=== PATIENT | female | born 1985 | race Caucasian/White ===

== ENCOUNTER 2019-08-04 18:01 | Emergency (ER) | payer OTHER ==
[~2019-08-04] VITALS: Ht 160 cm; Wt 121.1 kg
[2019-08-04 18:13] VITALS: BP 119/73
--- NOTE | 2019-08-04 18:19 | NUR ---
PT PLACED IN BED 9.
--- NOTE | 2019-08-04 18:45 | NUR ---
PT PRESENTS TO ED WITH C/O LOWER BACKL PAIN WITH CHILLS, NAUSEA, VOMITING. PAIN RAIDTES TO FRONT OF THE ABDOMEN. FEVER ON AND OFF. SABRINA ANY DISCOMFORT WITH URINE. PT AAO X4, GCS 51, AMBULATORY WITH STEADY GAIT. RESPIRATIONS EVEN AND UNLABORED, BL LUNG CEAR. SKIN WAMR/PINK/DRY, +PMSC. ABDOMEN SOFT, NON DISTENDED, ACTIVE BOWEL SOUND X4. VS, FEBRILE, STATED LOWER BACK PAIN 10/10. MADE AWARE OF PT STATUS. WILL CONTINUE TO MONITOR
[2019-08-04] MEDS ORDERED: KETOROLAC 30 MG/ML VIAL IVP ONE (18:55)
[2019-08-04] MEDS ORDERED: NACL 0.9% 1,000 ML IV ONE (18:55)
[2019-08-04] MEDS ORDERED: ACETAMINOPHEN 325 MG TAB PO ONE (19:00)
--- NOTE | 2019-08-04 19:15 | NUR ---
REPORT GIVEN TO AMADA DILLARD
[2019-08-04 19:19] LABS: BASOPHILS % (AUTO) 0.3 % (0.0-2.0); EOSINOPHILS % (AUTO) 0.3 % (0.0-4.0); HEMATOCRIT 37.8 % (36-48); HEMOGLOBIN 12.7 g/dL (12.0-16.0); LYMPHOCYTES # (AUTO) 2.2 K/uL (2.5-16.5); LYMPHOCYTES % (AUTO) 23.8 % (20.5-51.1); MEAN CORPUSCULAR HEMOGLOBIN 30 pg (27-31); MEAN CORPUSCULAR HGB CONC 34 g/dL (33-37); MEAN CORPUSCULAR VOLUME 88.2 fL (80-94); MONOCYTES # (AUTO) 0.8 K/uL (0.8-1.0); MONOCYTES % (AUTO) 8.3 % (1.7-9.3); NEUTROPHILS # (AUTO) 6.3 K/uL (1.8-7.7); NEUTROPHILS % (AUTO) 67.3 % (42.2-75.2); PLATELET COUNT (AUTO) 228 K/uL (140-450); RED BLOOD CELL COUNT(AUTO) 4.28 MIL/uL (4.20-5.40); RED CELL DISTRIBUTION WIDTH 14.2 % (11.6-13.7); WHITE BLOOD COUNT (AUTO) 9.4 K/uL (4.8-10.8)
[2019-08-04 19:30] LABS: ANION GAP 16.7 (8-16); CARBON DIOXIDE 25.2 mmol/L (21-32); CREATININE 0.8 mg/dL (0.6-1.3); POTASSIUM 3.9 mmol/L (3.5-5.1)
[2019-08-04 19:35] LABS: ALBUMIN 3.5 g/dL (3.4-5.0); TOTAL BILIRUBIN 0.8 mg/dL (0.0-1.0)
--- NOTE | 2019-08-04 19:35 | NUR ---
PT AAOX4, NO ACUTE DISTRESS NOTED. VSS. WILL CONTINUE TO OBSERVE.
[2019-08-04 19:40] LABS: APPEARANCE,URINE HAZY (CLEAR); BILIRUBIN,URINE 1+ (NEGATIVE); BLOOD, URINE 1+ (NEGATIVE); COLOR,URINE YELLOW (YELLOW); LEUKOCYTE ESTERASE ,URINE NEGATIVE (NEGATIVE); NITRITE, URINE NEGATIVE (NEGATIVE); UGLUCOSE NEGATIVE (NEGATIVE)
[2019-08-04 19:51] LABS: RBC,URINE 0-5 /HPF (0-5); WBC,URINE 0-5 /HPF (0-5)
[2019-08-04] MEDS ORDERED: LEVOFLOXACIN 750 MG/D5W PREMIX 150 ML IV ONE (20:10)
--- NOTE | 2019-08-04 21:32 | NUR ---
PT RETURN FROM CT
[2019-08-04] MEDS ORDERED: MORPHINE SULFATE 4 MG/ML SYR IVP ONE (22:35)
[2019-08-04] MEDS ORDERED: ONDANSETRON 4 MG/2 ML VIAL IVP ONE (22:35)
--- NOTE | 2019-08-04 23:00 | NUR ---
DPatient discharged with v/s stable. Written and verbal after care instructions given and explained. Patient alert, oriented and verbalized understanding of instructions. Ambulatory with steady gait. All questions addressed prior to discharge. ID band removed. Patient advised to follow up with PMD. Rx of LEVAQUIN, NAPROXEN, ZOFRAN, NORCO given. Patient educated on indication of medication including possible reaction and side effects. Opportunity to ask questions provided and answered.
[2019-08-04 23:59] VITALS: BP 119/73
--- NOTE | 2019-08-05 08:41 | NUR ---
Late entry. Confirmed with RN that Levaquin IVPB completed at [id number]
== END 2019-08-04 23:00 | disposition home or self-care (01) ==
LOC: MED 18:01
DX: N12 Tubulo-interstitial nephritis, not specified as acute or chronic (principal); R11.2 Nausea with vomiting, unspecified; Z88.0 Allergy status to penicillin; Z88.5 Allergy status to narcotic agent
CPT/HCPCS: 36415; 74176; 80053; 81001; 81025; 83605; 85025; 87040; 87086; 96361; 96365; 96366; 96375; 99284; J1885; J1956; J2270; J2405; J7030

== ENCOUNTER 2020-04-14 14:02 | Emergency (ER) | payer OTHER ==
[~2020-04-14] VITALS: Ht 160 cm; Wt 124.3 kg
[2020-04-14 14:08] VITALS: BP 129/62
--- NOTE | 2020-04-14 14:20 | NUR ---
35 yo female c/o bilateral flank pain for weeks that has gotten worse today. Also has lower pelvic pain. pt c/o urinary burning, pain, frequency, dribbling hx asthma
[2020-04-14] MEDS ORDERED: KETOROLAC 60 MG/2 ML VIAL IM ONE (14:25)
[2020-04-14 14:50] LABS: APPEARANCE,URINE CLEAR (CLEAR); BILIRUBIN,URINE NEGATIVE (NEGATIVE); BLOOD, URINE NEGATIVE (NEGATIVE); COLOR,URINE YELLOW (YELLOW); LEUKOCYTE ESTERASE ,URINE NEGATIVE (NEGATIVE); NITRITE, URINE NEGATIVE (NEGATIVE); UGLUCOSE NEGATIVE (NEGATIVE)
[2020-04-14 15:44] VITALS: BP 126/73
--- NOTE | 2020-04-14 15:45 | NUR ---
Patient discharged with v/s stable. Written and verbal after care instructions given and explained. Patient alert, oriented and verbalized understanding of instructions. Ambulatory with steady gait. All questions addressed prior to discharge. ID band removed. Patient advised to follow up with PMD. Rx of ROBAXIN, AZITHROMYCIN AND MOTRIN given. Patient educated on indication of medication including possible reaction and side effects. Opportunity to ask questions provided and answered.
== END 2020-04-14 15:45 | disposition home or self-care (01) ==
LOC: MED 14:02
DX: S39.012A Strain of muscle, fascia and tendon of lower back, initial encounter (principal); J45.909 Unspecified asthma, uncomplicated; Z88.0 Allergy status to penicillin; Z88.5 Allergy status to narcotic agent; X58.XXXA Exposure to other specified factors, initial encounter; Y93.89 Activity, other specified; Y92.89 Other specified places as the place of occurrence of the external cause; Y99.8 Other external cause status
CPT/HCPCS: 74176; 81003; 81025; 96372; 99284; J1885

== ENCOUNTER 2020-08-16 12:32 | Emergency (ER) | payer OTHER ==
[~2020-08-16] VITALS: Ht 160 cm; Wt 128.8 kg
[2020-08-16 12:53] VITALS: BP 123/61
--- NOTE | 2020-08-16 13:06 | NUR ---
PT W/C TO BED 9.
--- NOTE | 2020-08-16 13:08 | NUR ---
35/F PRESENTS TO ED WITH C/O PAINFUL URINATION X 3 DAYS. PT STATES SHE HAD A MECHANICAL TRIP AND FALL YESTERDAY AND C/O LEFT ANKLE PAIN. PT UNABLE TO BEAR WEIGHT AT THIS TIME. GERMAN SNYDER
[2020-08-16] MEDS ORDERED: KETOROLAC 30 MG/ML VIAL IM ONE (13:55)
[2020-08-16] MEDS ORDERED: ACETAMINOPHEN EXTRA STRENGTH 500 MG TAB PO ONE (13:55)
[2020-08-16 14:06] VITALS: BP 121/68
--- NOTE | 2020-08-16 14:06 | NUR ---
Patient discharged with v/s stable. Written and verbal after care instructions given and explained. Patient alert, oriented and verbalized understanding of instructions. Ambulatory with steady gait. All questions addressed prior to discharge. ID band removed. Patient advised to follow up with PMD. Rx of Motrin and Macrobid given. Patient educated on indication of medication including possible reaction and side effects. Opportunity to ask questions provided and answered.
[2020-08-16 14:11] LABS: APPEARANCE,URINE HAZY (CLEAR); BILIRUBIN,URINE NEGATIVE (NEGATIVE); BLOOD, URINE NEGATIVE (NEGATIVE); COLOR,URINE ORANGE (YELLOW); LEUKOCYTE ESTERASE ,URINE NEGATIVE (NEGATIVE); NITRITE, URINE NEGATIVE (NEGATIVE); PH,URINE 5.5 (5.0-9.0); UGLUCOSE NEGATIVE (NEGATIVE)
== END 2020-08-16 14:06 | disposition home or self-care (01) ==
LOC: MED 12:32
DX: S93.402A Sprain of unspecified ligament of left ankle, initial encounter (principal); N39.0 Urinary tract infection, site not specified; J45.909 Unspecified asthma, uncomplicated; Z88.0 Allergy status to penicillin; Z88.5 Allergy status to narcotic agent; W01.0XXA Fall on same level from slipping, tripping and stumbling without subsequent striking against object, initial encounter; Y93.89 Activity, other specified; Y92.89 Other specified places as the place of occurrence of the external cause; Y99.8 Other external cause status
CPT/HCPCS: 73610; 81003; 81025; 87086; 96372; 99284; J1885; Q0092

== ENCOUNTER 2020-08-27 19:46 | Emergency (ER) | payer OTHER ==
[~2020-08-27] VITALS: Ht 160 cm; Wt 127.0 kg
[2020-08-27 20:15] VITALS: BP 129/89
--- NOTE | 2020-08-27 20:22 | NUR ---
to lobby ambulatory
--- NOTE | 2020-08-27 21:35 | NUR ---
PT AMBULATED TO ER BED 4 W/ STEADY GAIT.
--- NOTE | 2020-08-27 21:39 | NUR ---
ERMD AT BEDSIDE.
--- NOTE | 2020-08-27 21:40 | NUR ---
35 y/o female c/o 07/21 constant sharp aching pain when urinating that radiates to her mid and lower back x2 weeks. pt denies fever. pt had tenderness to palpation. bowel sounds normoactivex4 quadrants. pt denies blood in urine. pt is sitting upright no distress noted. pmh: asthma allergies: penicillin, dilaudid
--- NOTE | 2020-08-27 22:03 | NUR ---
LAB AT BEDSIDE.
[2020-08-27 22:23] LABS: BASOPHILS # (AUTO) 0.1 K/uL (0.00-0.22); BASOPHILS % (AUTO) 0.6 % (0.0-2.0); EOSINOPHILS # (AUTO) 0.1 K/uL (0-0.4); EOSINOPHILS % (AUTO) 1.7 % (0.0-4.0); HEMATOCRIT 37.8 % (36-48); HEMOGLOBIN 12.7 g/dL (12.0-16.0); LYMPHOCYTES # (AUTO) 2.9 K/uL (2.5-16.5); LYMPHOCYTES % (AUTO) 33.8 % (20.5-51.1); MEAN CORPUSCULAR HEMOGLOBIN 30 pg (27-31); MEAN CORPUSCULAR HGB CONC 34 g/dL (33-37); MEAN CORPUSCULAR VOLUME 88.2 fL (80-94); MONOCYTES # (AUTO) 0.5 K/uL (0.8-1.0); MONOCYTES % (AUTO) 5.3 % (1.7-9.3); NEUTROPHILS % (AUTO) 58.6 % (42.2-75.2); PLATELET COUNT (AUTO) 238 K/uL (140-450); RED BLOOD CELL COUNT(AUTO) 4.29 MIL/uL (4.20-5.40); RED CELL DISTRIBUTION WIDTH 13.9 % (11.6-13.7); WHITE BLOOD COUNT (AUTO) 8.6 K/uL (4.8-10.8)
[2020-08-27 22:36] LABS: ANION GAP 12.3 (8-16); CARBON DIOXIDE 26.6 mmol/L (21-32); CREATININE 0.8 mg/dL (0.6-1.3); POTASSIUM 3.9 mmol/L (3.5-5.1)
[2020-08-27 22:42] LABS: ALBUMIN 3.7 g/dL (3.4-5.0); TOTAL BILIRUBIN 0.3 mg/dL (0.0-1.0)
--- NOTE | 2020-08-27 23:05 | NUR ---
per ADEOLA TERAN , ADMINISTER PO CHALLENGE AT THIS TIME.
[2020-08-27] MEDS ORDERED: KETOROLAC 30 MG/ML VIAL IM ONE ×2 (23:10)
--- NOTE | 2020-08-27 23:10 | NUR ---
PO CHALLENGE TOLERATED WELL. ERMD MADE AWARE
--- NOTE | 2020-08-27 23:11 | NUR ---
ERMD AT BEDSIDE FOR REEVALUATION.
[2020-08-27 23:27] VITALS: BP 132/87
== END 2020-08-27 23:27 | disposition home or self-care (01) ==
LOC: MED 19:46
DX: N12 Tubulo-interstitial nephritis, not specified as acute or chronic (principal); N39.0 Urinary tract infection, site not specified; J45.909 Unspecified asthma, uncomplicated; Z88.0 Allergy status to penicillin; Z88.5 Allergy status to narcotic agent
CPT/HCPCS: 36415; 80053; 81002; 81025; 83690; 85025; 96372; 99283

== ENCOUNTER 2021-01-01 14:45 | Emergency (ER) | payer OTHER ==
[~2021-01-01] VITALS: Ht 160 cm; Wt 121.6 kg
[2021-01-01 14:55] VITALS: BP 110/67
[2021-01-01] MEDS: DEXAMETHASONE 4 MG/ML VIAL PO ONE (16:21)
[2021-01-01] MEDS: ALBUTEROL 0.083% 2.5 MG/3 ML NEBU INH ONE (16:27)
[2021-01-01] MEDS ORDERED: ONDA4ODT2 PO (16:41)
[2021-01-01] MEDS ORDERED: PHEN-1593 PO (16:41)
[2021-01-01] MEDS ORDERED: CEPH500C16 PO (16:41)
[2021-01-01 17:31] VITALS: BP 125/66
== END 2021-01-01 17:15 | disposition home or self-care (01) ==
LOC: MED 14:45
DX: N12 Tubulo-interstitial nephritis, not specified as acute or chronic (principal); J45.909 Unspecified asthma, uncomplicated
CPT/HCPCS: 81002; 81025; 87086; 94640; 99283; J1100; J7613